=== PATIENT | female | born 1965 | race Caucasian/White ===

== ENCOUNTER → 2017-08-20 | Outpatient (CLI) | payer OTHER ==
[~2017-08-20] MED LIST: ADULT LOW DOSE81 MG PO; ADVAIR 100-501 EACH INH; ALDACTONE25 MG PO; ALPRAZOLAM 0.50.5 M1 PO; CARVEDILOL12.5 MG PO; COZAAR 50 MG TA50 M1 PO; DOXYCYCLINE 10100 MG PO; DUONEB 2.5-0.5 M3 ML INH; ENOXAPARIN30 MG/0.3; FISH OIL 1,4001 EACH PO; GLIPIZIDE 10 MG10 MG PO; HYDROCODON-ACE1 EAC5 PO; IBUPROFEN 200200 M1 PO; JANUMET 50-5001 EACH PO; JANUVIA50 MG PO; LASIX 20 MG TAB20 MG PO; METFORMIN HCL500 MG PO; MICROZIDE12.5 MG PO; NORCO 5-325 TA1 EACH PO; OXYIR 5 MG CAPSU5 M1 PO; PROMETHAZINE V473 ML PO; PROZAC 20 MG20 MG PO; ROBITUSSIN100 MG/53 PO; SPIRIVA INH; TESSALON PERLE100 MG PO; VENTOLIN HFA 1818 GM INH; VITAMINC500 PO; ZPAK PO
== END ==
LOC: M.RAD 14:24
DX: M16.11 Unilateral primary osteoarthritis, right hip (principal); M89.8X5 Other specified disorders of bone, thigh

== ENCOUNTER → 2017-10-09 | Outpatient (CLI) | payer OTHER | LOC: M.NUC 10-01 12:14 | DX: M17.12 Unilateral primary osteoarthritis, left knee (principal); M19.012 Primary osteoarthritis, left shoulder; M19.011 Primary osteoarthritis, right shoulder ==

== ENCOUNTER 2017-10-30 17:32 | Emergency (ER) | payer OTHER ==
[~2017-10-30] VITALS: Ht 154.9 cm; Wt 119.3 kg
[~2017-10-30 17:32] MED LIST changes: -CARVEDILOL12.5 MG PO; -DUONEB 2.5-0.5 M3 ML INH; -JANUVIA50 MG PO; -METFORMIN HCL500 MG PO; -NORCO 5-325 TA1 EACH PO; -PROMETHAZINE V473 ML PO
[2017-10-30] MEDS ORDERED: JANUVIA50 MG PO (17:55)
[2017-10-30] MEDS ORDERED: METFORMIN HCL500 MG PO (17:55)
[2017-10-30] MEDS ORDERED: CARVEDILOL12.5 MG PO (17:56)
[2017-10-30] MEDS ORDERED: DUONEB 2.5-0.5 M3 ML INH (18:32)
[2017-10-30] MEDS ORDERED: TESSALON PERLE100 MG PO (18:32)
[2017-10-30] MEDS ORDERED: PROMETHAZINE V473 ML PO (18:32)
[2017-10-30] MEDS ORDERED: ZPAK PO (18:32)
[2017-10-30 18:43] VITALS: BP 153/82
== END 2017-10-30 18:44 | disposition home or self-care (01) ==
LOC: M.ERS 17:32
DX: J20.9 Acute bronchitis, unspecified (principal); J44.9 Chronic obstructive pulmonary disease, unspecified; I10 Essential (primary) hypertension; E11.9 Type 2 diabetes mellitus without complications; M79.7 Fibromyalgia; Z85.71 Personal history of Hodgkin lymphoma; Z98.890 Other specified postprocedural states; Z88.1 Allergy status to other antibiotic agents

== ENCOUNTER 2018-01-30 13:02 | Emergency (ER) | payer OTHER ==
[~2018-01-30] VITALS: Ht 154.9 cm; Wt 117.9 kg
[~2018-01-30 13:02] MED LIST changes: +CARVEDILOL12.5 MG PO; +DUONEB 2.5-0.5 M3 ML INH; +JANUVIA50 MG PO; +METFORMIN HCL500 MG PO; +PROMETHAZINE V473 ML PO
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
[2018-01-30] MEDS ORDERED: NORCO 5-325 TA1 EACH PO (15:41)
[2018-01-30 15:56] VITALS: BP 144/60
== END 2018-01-30 15:57 | disposition home or self-care (01) ==
LOC: M.ERS 13:02
DX: S09.8XXA Other specified injuries of head, initial encounter (principal); M25.511 Pain in right shoulder; I10 Essential (primary) hypertension; E11.9 Type 2 diabetes mellitus without complications; M79.7 Fibromyalgia; Z88.1 Allergy status to other antibiotic agents; Z88.8 Allergy status to other drugs, medicaments and biological substances; Y08.89XA Assault by other specified means, initial encounter; Y93.89 Activity, other specified; Y92.89 Other specified places as the place of occurrence of the external cause; Y99.8 Other external cause status; J44.9 Chronic obstructive pulmonary disease, unspecified

== ENCOUNTER → 2019-05-14 | Outpatient (CLI) | payer OTHER ==
[~2019-05-14] MED LIST changes: +NORCO 5-325 TA1 EACH PO
== END ==
LOC: M.MRI 05-05 09:48
DX: M51.16 Intervertebral disc disorders with radiculopathy, lumbar region (principal); M51.25 Other intervertebral disc displacement, thoracolumbar region; M12.88 Other specific arthropathies, not elsewhere classified, other specified site; M48.062 Spinal stenosis, lumbar region with neurogenic claudication; M47.817 Spondylosis without myelopathy or radiculopathy, lumbosacral region; K76.0 Fatty (change of) liver, not elsewhere classified; R16.0 Hepatomegaly, not elsewhere classified; N28.89 Other specified disorders of kidney and ureter; Z88.8 Allergy status to other drugs, medicaments and biological substances

== ENCOUNTER 2019-07-02 12:20 | Emergency (ER) | payer OTHER ==
[~2019-07-02] VITALS: Ht 154.9 cm; Wt 108.9 kg
[~2019-07-02 12:20] MED LIST changes: -ALDACTONE25 MG PO; +ALDACTONE50 MG PO
[2019-07-02] MEDS ORDERED: VICTOZA0.6 MG/0.1 SUBQ (12:39)
[2019-07-02 13:24] LABS: HEMATOCRIT 40.1 % (37.0-47.0); HEMOGLOBIN 13.8 gm/dL (12.0-15.0); MCH 29.1 pg (26.0-34.0); MCHC 34.5 g/dL (28.0-37.0); MCV 84.5 fL (80.0-100.0); MPV 7.4 fl. (7.2-11.1); NUCLEATED RBCS 0 /100WBC; PLATELET COUNT* 143 thou/uL (150-400); RBC 4.75 mil/uL (4.20-5.00); RDW-CV 14.7 % (10.5-14.5); WBC 2.3 thou/uL (4.0-11.0)
[2019-07-02 13:37] LABS: CREATININE 0.7 mg/dL (0.6-1.3); POTASSIUM 3.7 mmol/L (3.5-5.1)
[2019-07-02 13:42] LABS: ALBUMIN 3.7 g/dL (3.4-5.0); TOTAL BILIRUBIN 0.9 mg/dL (<0.1-1.0); TOTAL PROTEIN 6.8 g/dL (6.4-8.2)
[2019-07-02 13:43] LABS: URINE BILIRUBIN NEGATIVE (Negative); URINE BLOOD TRACE (Negative); URINE CLARITY CLEAR; URINE COLOR YELLOW; URINE GLUCOSE-RANDOM TRACE (Negative); URINE KETONES NEGATIVE (Negative); URINE LEUKOCYTES-REFLEX TRACE (Negative); URINE NITRITE-REFLEX NEGATIVE (Negative); URINE PROTEIN 1+ (Negative); URINE SPECIFIC GRAVITY >= 1.030 (1.005-1.030); URINE UROBILINOGEN 0.2 E.U./dl (0.2-1.0)
[2019-07-02 13:51] LABS: ABSOLUTE LYMPHOCYTES 0.1 thou/uL (0.8-5.3); ABSOLUTE MONOCYTES 0.1 thou/uL (0.0-1.2); ABSOLUTE NEUTROPHILS 2.1 thou/uL (1.6-8.1); PLATELET ESTIMATE ADEQUATE
[2019-07-02 13:56] LABS: AMORPHOUS PHOSPHATES Few /LPF (None Seen); BACTERIA-REFLEX 1-9 Few /HPF (None Seen); CASTS None Seen /LPF (None Seen); CRYSTALS None Seen /LPF (None Seen); MUCUS >6 Heavy strn/LPF (None Seen); SQUAMOUS >10 Many /LPF (0-3); TRANSITIONAL EPITHEL CELL 0-3 Few /LPF (None Seen); URINE RBC 0-2 Rare /HPF (0-2); URINE WBC-REFLEX 0-5 Rare /HPF (0-5)
[2019-07-02] MEDS ORDERED: NORCO 5-325 TA1 EAC1 PO (15:52)
[2019-07-02] MEDS ORDERED: ZOFRAN ODT4 MG DISSOLVE (15:52)
--- NOTE | 2019-07-02 15:53 | EKG ---
[place] [address] ELECTROCARDIOGRAM REPORT Name: TRUE CRUZ Room: [facility]#: [id number] Admission: 07/02/19 Attend Phys: Discharge: Date of : 63 Report #: [id number] THIS REPORT FOR: //name// [facility] ED Test Date: 2019-07-02 Test Time: 12:55:31 Pat Name: TRUE CRUZ Department: Room: Gender: F [employer]: : 1965 Requested By: Tom Ayala Order Number: [id number] MD: Freddy Mcnulty Measurements Intervals [place] Rate: 97 P: 72 AR: 126 QRS: 44 QRSD: 82 T: 92 QT: 372 QTc: 473 Interpretive Statements Sinus rhythm Nonspecific T abnormalities, lateral leads Baseline wander in lead(s) V3 Compared to ECG 09/28/2012 10:16:11 T-wave abnormality still present Electronically Signed On 07-02-2019 15:52:51 EXECUTIVE PASTRY CHEF by Freddy Mcnulty [email or web address] <ELECTRONICALLY SIGNED> By: Freddy Mcnulty MD, [facility] 07/02/19 1552 1255 [id number] Freddy Mcnulty MD, FACC /EPI
[2019-07-02 16:10] VITALS: BP 151/93
[2019-07-03] MEDS ORDERED: TRESIBA FL100 UNIT/1 SUBQ (19:15)
== END 2019-07-02 16:11 | disposition home or self-care (01) ==
LOC: M.ERS 12:20
PROVIDERS: Emergency Medicine Emergency Medical Services
DX: R10.12 Left upper quadrant pain (principal); R11.2 Nausea with vomiting, unspecified; J44.9 Chronic obstructive pulmonary disease, unspecified; I10 Essential (primary) hypertension; E11.9 Type 2 diabetes mellitus without complications; M79.7 Fibromyalgia; Z88.1 Allergy status to other antibiotic agents; Z98.890 Other specified postprocedural states; Z88.8 Allergy status to other drugs, medicaments and biological substances

== ENCOUNTER 2019-07-03 17:55 | Inpatient (IN) | payer OTHER ==
[~2019-07-03] VITALS: Ht 154.9 cm; Wt 108.9 kg
[~2019-07-03 17:55] MED LIST changes: +NORCO 5-325 TA1 EAC1 PO; +VICTOZA0.6 MG/0.1 SUBQ; +ZOFRAN ODT4 MG DISSOLVE
[2019-07-03 18:05] VITALS: BP 161/85
[2019-07-03 18:52] LABS: HEMATOCRIT 36.9 % (37.0-47.0); HEMOGLOBIN 12.6 gm/dL (12.0-15.0); MCH 28.4 pg (26.0-34.0); MCHC 34.1 g/dL (28.0-37.0); MCV 83.2 fL (80.0-100.0); NUCLEATED RBCS 0 /100WBC; PLATELET COUNT* 111 thou/uL (150-400); RBC 4.44 mil/uL (4.20-5.00); RDW-CV 14.7 % (10.5-14.5)
[2019-07-03 18:58] LABS: CALCIUM 8.8 mg/dL (8.5-10.1); CREATININE 0.7 mg/dL (0.6-1.3); POTASSIUM 3.3 mmol/L (3.5-5.1); WBC 1.6 thou/uL (4.0-11.0)
[2019-07-03 19:02] LABS: ALBUMIN 3.4 g/dL (3.4-5.0); TOTAL BILIRUBIN 1.2 mg/dL (<0.1-1.0); TOTAL PROTEIN 6.4 g/dL (6.4-8.2)
[2019-07-03] MEDS ORDERED: TRESIBA FL100 UNIT/1 SUBQ (19:15)
[2019-07-03 19:28] LABS: ABSOLUTE EOSINOPHILS 0.1 thou/uL (0.0-0.7); ABSOLUTE LYMPHOCYTES 0.1 thou/uL (0.8-5.3); ABSOLUTE MONOCYTES 0.1 thou/uL (0.0-1.2); ABSOLUTE NEUTROPHILS 1.3 thou/uL (1.6-8.1); PLATELET ESTIMATE DECREASED
[2019-07-03 19:29] LABS: ANISOCYTOSIS Occasional
[2019-07-03 19:32] LABS: URINE BILIRUBIN NEGATIVE (Negative); URINE BLOOD TRACE (Negative); URINE CLARITY SL CLOUDY; URINE COLOR YELLOW; URINE GLUCOSE-RANDOM TRACE (Negative); URINE KETONES TRACE (Negative); URINE LEUKOCYTES-REFLEX 1+ (Negative); URINE NITRITE-REFLEX NEGATIVE (Negative); URINE PROTEIN TRACE (Negative); URINE SPECIFIC GRAVITY 1.025 (1.005-1.030); URINE UROBILINOGEN 0.2 E.U./dl (0.2-1.0)
[2019-07-03 19:36] LABS: SQUAMOUS >10 Many /LPF (0-3)
[2019-07-03 19:37] LABS: URINE WBC-REFLEX 6-15 Few /HPF (0-5)
[2019-07-03 19:38] LABS: BACTERIA-REFLEX >30 Many /HPF (None Seen); HYALINE CASTS 0-3 Few /LPF (None Seen); MUCUS >6 Heavy strn/LPF (None Seen); URINE RBC 0-2 Rare /HPF (0-2)
[2019-07-03 19:39] LABS: CRYSTALS None Seen /LPF (None Seen); WBC CLUMPS Few (None Seen)
[2019-07-03 19:49] LABS: INFLUENZA A ANTIGEN Negative (Negative); INFLUENZA B ANTIGEN Negative (Negative)
[2019-07-03 21:50] VITALS: BP 154/65
[2019-07-04 07:11] VITALS: BP 117/50
[2019-07-04 16:00] VITALS: BP 113/55
[2019-07-05 03:55] VITALS: BP 120/64
[2019-07-05 07:52] VITALS: BP 130/63
[2019-07-05] MEDS ORDERED: METFORMIN HCL500 M3 PO (08:50)
[2019-07-05 10:28] LABS: HEMATOCRIT 29.9 % (37.0-47.0); MCH 28.9 pg (26.0-34.0); MCHC 34.4 g/dL (28.0-37.0); MPV 7.6 fl. (7.2-11.1); RBC 3.56 mil/uL (4.20-5.00); RDW-CV 14.6 % (10.5-14.5)
[2019-07-05 10:31] LABS: HEMOGLOBIN 10.3 gm/dL (12.0-15.0)
[2019-07-05 10:34] LABS: WBC 1.5 thou/uL (4.0-11.0)
[2019-07-05 11:03] LABS: ALBUMIN 2.8 g/dL (3.4-5.0); CALCIUM 7.6 mg/dL (8.5-10.1); CREATININE 0.6 mg/dL (0.6-1.3); PHOSPHORUS* 2.3 mg/dL (2.5-4.9); POTASSIUM 3.1 mmol/L (3.5-5.1)
[2019-07-05 16:00] VITALS: BP 102/56
[2019-07-05 21:41] LABS: URINE BILIRUBIN NEGATIVE (Negative); URINE BLOOD NEGATIVE (Negative); URINE CLARITY CLEAR; URINE COLOR YELLOW; URINE GLUCOSE-RANDOM NEGATIVE (Negative); URINE KETONES NEGATIVE (Negative); URINE LEUKOCYTES-REFLEX NEGATIVE (Negative); URINE NITRITE-REFLEX NEGATIVE (Negative); URINE PROTEIN NEGATIVE (Negative); URINE SPECIFIC GRAVITY 1.025 (1.005-1.030)
[2019-07-05 23:24] VITALS: BP 135/57
[2019-07-06 06:41] LABS: HEMOGLOBIN 9.6 gm/dL (12.0-15.0); MPV 7.8 fl. (7.2-11.1); RDW-CV 14.6 % (10.5-14.5)
[2019-07-06 06:43] LABS: CALCIUM 8.4 mg/dL (8.5-10.1); CREATININE 0.6 mg/dL (0.6-1.3); HEMATOCRIT 26.9 % (37.0-47.0); MCH 29.5 pg (26.0-34.0); MCHC 35.6 g/dL (28.0-37.0); MCV 82.8 fL (80.0-100.0); NUCLEATED RBCS 2 /100WBC; PLATELET COUNT* 100 thou/uL (150-400); POTASSIUM 3.5 mmol/L (3.5-5.1); RBC 3.25 mil/uL (4.20-5.00)
[2019-07-06 06:45] LABS: WBC 1.1 thou/uL (4.0-11.0)
[2019-07-06 07:50] VITALS: BP 117/69
[2019-07-06 08:15] LABS: ABSOLUTE EOSINOPHILS 0.1 thou/uL (0.0-0.7); ABSOLUTE LYMPHOCYTES 0.1 thou/uL (0.8-5.3); ABSOLUTE MONOCYTES 0.1 thou/uL (0.0-1.2); ABSOLUTE NEUTROPHILS 0.8 thou/uL (1.6-8.1); PLATELET ESTIMATE ADEQUATE
[2019-07-06 16:00] VITALS: BP 133/75
[2019-07-07 05:09] LABS: ABSOLUTE EOSINOPHILS 0.1 thou/uL (0.0-0.7); ABSOLUTE LYMPHOCYTES 0.1 thou/uL (0.8-5.3); BASOPHILS 0.3 %; EOSINOPHILS 4.7 %; HEMATOCRIT 27.6 % (37.0-47.0); HEMOGLOBIN 9.8 gm/dL (12.0-15.0); LYMPHOCYTES 9.6 %; MCH 29.3 pg (26.0-34.0); MCHC 35.3 g/dL (28.0-37.0); MCV 82.8 fL (80.0-100.0); MONOCYTES 11.6 %; MPV 7.2 fl. (7.2-11.1); NUCLEATED RBCS 0 /100WBC; PLATELET COUNT* 131 thou/uL (150-400); POLYS 73.8 %; RBC 3.34 mil/uL (4.20-5.00); RDW-CV 14.7 % (10.5-14.5)
[2019-07-07 05:24] LABS: ALBUMIN 2.9 g/dL (3.4-5.0); CALCIUM 8.8 mg/dL (8.5-10.1); CREATININE 0.7 mg/dL (0.6-1.3); MAGNESIUM 1.9 mg/dL (1.8-2.4); POTASSIUM 3.3 mmol/L (3.5-5.1); TOTAL BILIRUBIN 0.6 mg/dL (<0.1-1.0)
[2019-07-07 05:25] LABS: ABSOLUTE MONOCYTES 0.2 thou/uL (0.0-1.2)
[2019-07-07 05:26] LABS: WBC 1.3 thou/uL (4.0-11.0)
[2019-07-07 05:44] LABS: % SATURATION 13 % (20-39); IRON 30 ug/dL (50-175)
[2019-07-07 07:50] VITALS: BP 104/66
[2019-07-07 17:29] VITALS: BP 141/76
--- NOTE | 2019-07-07 17:29 | CON ---
[address] [address] CONSULTATION Name: TRUE CRUZ Room: [address] IN M.R.#: [id number] Admission: 07/03/19 Attend Phys: Ronnell Frazier MD Discharge: Date of : 63 Report #: [id number] THIS REPORT FOR: //name// CC: Edinson Cifuentes DATE OF SERVICE: 07/05/2019 REASON FOR CONSULTATION: Leukopenia. SUBJECTIVE: A 54-year-old female, was evaluated at [facility] because of symptoms of abdominal pain, started a few days prior to admission associated with diarrhea and vomiting. The patient was found to have a temperature of 101 with the chills and she described her pain as a throbbing/constant, located at the epigastric and left upper quadrant. The patient upon admission was found to have a WBC of 1.6 and differential showed absolute neutrophils at 1.3. The patient stated that she has [facility] non-[facility]gkin [facility], follicular lymphoma, which was treated, last dose with bendamustine and rituximab in February. Per the patient, her white count was borderline low; however, it was not that low. In the records in [facility], the prior CBC was done in 09/2012, WBC was 6.8. The patient denies any night sweats or lymphadenopathy. REVIEW OF SYSTEMS: All systems were reviewed, it was negative except the above. PAST MEDICAL HISTORY: Diabetes mellitus, hypertension, non-Hodgkin lymphoma follicular subtype, fibromyalgia and osteoarthritis. PAST SURGICAL HISTORY: Right knee repair. SOCIAL HISTORY: She is an ex-smoker. She quit more than one year ago. No alcohol or drug abuse. ALLERGIES: SHE IS ALLERGIC TO AUGMENTIN, POTASSIUM CLAVULANATE. CURRENT MEDICATIONS: Per admission list. PHYSICAL EXAMINATION: VITAL SIGNS: Today, temperature is 37.1, T-max 37.2, pulse is 84, respirations 20, blood pressure is 120/64, SpO2 was 96% on room air. GENERAL: The patient was sitting at the edge of the bed. She was not in acute distress. LUNGS: Clear to auscultations bilaterally. HEART: Regular rate and rhythm. S1, S2 within normal limits. EXTREMITIES: [place] [address] CONSULTATION Name: TRUE CRUZ Griffin Room: [address]#: [id number] Admission: 07/03/19 Attend Phys: Ronnell Frazier MD Discharge: Date of : 63 Report #: [id number] LABORATORY DATA: On 07/03/2019, WBC 1.6, hemoglobin 12.6, platelets 111, ANC is 1.3. Chemistry: Sodium is 133, potassium 3.3, creatinine 0.7, bilirubin 1.2, AST 49, ALT 62. Lipase is 162. IMAGING: Abdominal ultrasound showed hepatic steatosis. Spleen was measured as 11.3 cm. ASSESSMENT AND PLAN: A 54-year-old female who has been evaluated today because of neutropenia and very mild thrombocytopenia. The patient has been following with her oncologist after she finished treatment with bendamustine and rituximab in 02/2019. The etiology of her leukopenia could be related to myelosuppression with a gastroenteritis and viral illness. In addition to that, her ultrasound showed hepatic steatosis. RECOMMENDATIONS: 1. I will obtain a workup including peripheral blood smear, B12, copper level and folate, LDH and haptoglobin. Other differential will be recurrence of lymphoma with a bone marrow involvement. 2. I would like to obtain a workup during hospitalization if her neutropenia worsened, we will arrange for a bone marrow biopsy. Otherwise, follow up with her primary oncologist. <ELECTRONICALLY SIGNED> By: Val Roy MD 07/07/19 1729 0900 [id number] Roy MD /nt
[2019-07-08 02:07] LABS: GLYCOHEMOGLOBIN (HGB A1C) 9.7 % (4.8-5.6)
--- NOTE | 2019-07-08 14:27 | CON ---
[address] [address] CONSULTATION Name: TRUE CRUZ Room: [address]#: [id number] Admission: 07/03/19 Attend Phys: Ronnell Frazier MD Discharge: 07/07/19 Date of : 63 Report #: [id number] THIS REPORT FOR: //name// CC: Ronnell Cifuentes DO DICTATED BY: Carmen Hager [facility] DATE OF SERVICE: 07/05/2019 PRIMARY CARE PHYSICIAN: Isabela Cifuentes DO Please note at the time of this dictation, the patient was seen and physically examined by myself. REASON FOR CONSULTATION: Abdominal pain and some nausea and vomiting. HISTORY OF PRESENT ILLNESS: This is a 54-year-old female who presented to her PCP's office with this abdominal pain. She had a CT scan done as an outpatient on 07/02/2019 for this epigastric discomfort in the left upper quadrant that radiated into her back. CT showed a small fundal mass at the gallbladder with also fatty infiltrations of the liver, otherwise negative. The patient states then the following day, she developed a fever along with her nausea and vomiting, which was negative for any bright red blood or coffee-ground emesis that prompted her to come back to the Emergency Room. She has not had any more vomiting since she has been here, but only the nausea. She does complain of early satiety, which she has had for greater than 1 year and has never had a gastric emptying test. She states she will have abdominal pain shortly after eating and will likely have a loose stool within 20 minutes. She has loose stools on a normal basis, which are anywhere from 3-5 a day. She did have an EGD and colonoscopy done at [facility] in [place]. EGD and colonoscopy were essentially negative at that time and we will request those records for our review as well as pathology. ALLERGIES: AMOXICILLIN AND AUGMENTIN. MEDICATIONS FROM HOME: Aldactone, Glucotrol, Januvia, Glucophage, Coreg, Victoza, Tresiba, and Ventolin. PAST MEDICAL HISTORY: Significant for COPD, hypertension, diabetes, non-Hodgkin's lymphoma and follicular lymphoma, fibromyalgia, degenerative disk disease, and hidradenitis. PAST SURGICAL HISTORY: Knee arthroscopy, , [place] [address] CONSULTATION Name: TRUE CRUZ Griffin Room: [address]#: [id number] Admission: 07/03/19 Attend Phys: Ronnell Frazier MD Discharge: 07/07/19 Date of : 63 Report #: [id number] FAMILY HISTORY: Negative. SOCIAL HISTORY: Alcohol on special occasions, quit smoking probably 6 years ago, and denies any illegal drug use. REVIEW OF SYSTEMS: Twelve-point review of systems is essentially negative except what is mentioned in the HPI. PHYSICAL EXAMINATION: VITAL SIGNS: Temperature 36.6, pulse 93, respirations 17, blood pressure 120/64. HEART: Regular rate and rhythm. LUNGS: Diminished, but clear. ABDOMEN: Soft, positive bowel sounds in all 4 quadrants with tenderness noted in the epigastric and right and left upper quadrant areas. LABORATORY DATA: Hemoglobin 10.3, white count is 1.5, platelets 102. GFR is 87. LFTs: Total bilirubin is 1.2, alkaline phosphatase is 83, ALT 62, and AST is 49. CT done as an outpatient showed this small fundal mass questionable of the gallbladder with fatty infiltration that was noted on admission. She did have an ultrasound that showed hepatic steatosis. She did have an outpatient CCK PIPIDA that was negative she was told. IMPRESSION: 1. Abdominal pain right upper quadrant, possibly related to reflux, occurs after eating. Left upper quadrant, questionable etiology. 2. Early satiety. 3. Abnormal CT of the gallbladder. 4. Hepatic steatosis. 5. Neutropenia. 6. Thrombocytopenia. 7. Slight elevation of her total bilirubin. 8. Non-Hodgkin's lymphoma and follicular lymphoma. PLAN: 1. GET which she needs, but unable to do at this time. 2. The patient would likely benefit from an EUS to further evaluate her left upper quadrant pain, liver, and pancreas. 3. Obtain records from [facility] regarding her EGD colon with path done earlier this year. 4. We will try Bentyl 10 mg before meals t.i.d. to see if this will help with some of her abdominal cramping with eating. 5. Further recommendations to be made once the above has been noted and Dr. Dominique sees the patient later today. [address] [place] [address] CONSULTATION Name: TRUE CRUZ Room: [address] IN M.R.#: [id number] Admission: 07/03/19 Attend Phys: Ronnell Frazier MD Discharge: 07/07/19 Date of : 63 Report #: [id number] Thank you for allowing us to participate in this patient's care. Please do not hesitate to call with any questions in regard to this consult. <ELECTRONICALLY SIGNED> By: Conor Dominique MD 07/08/19 1427 1251 [id number] Dominique MD /nt
== END 2019-07-07 18:29 | disposition left against medical advice (07) | DRG 391 ==
LOC: M.ERS 17:55 → M.TBA-ER 21:22 → M.3W 21:22
PROVIDERS: Family Medicine; Internal Medicine; Nurse Practitioner Family; Surgery; ADMIT Internal Medicine
DX: K52.9 Noninfective gastroenteritis and colitis, unspecified (principal); D61.810 Antineoplastic chemotherapy induced pancytopenia; N12 Tubulo-interstitial nephritis, not specified as acute or chronic; Z68.42 Body mass index [BMI] 45.0-49.9, adult; B34.9 Viral infection, unspecified; I10 Essential (primary) hypertension; J44.9 Chronic obstructive pulmonary disease, unspecified; K76.0 Fatty (change of) liver, not elsewhere classified; E66.01 Morbid (severe) obesity due to excess calories; K21.9 Gastro-esophageal reflux disease without esophagitis; T45.1X5A Adverse effect of antineoplastic and immunosuppressive drugs, initial encounter; E11.9 Type 2 diabetes mellitus without complications; M79.7 Fibromyalgia; M19.90 Unspecified osteoarthritis, unspecified site; R68.81 Early satiety; Z96.651 Presence of right artificial knee joint; Z79.4 Long term (current) use of insulin; Z79.899 Other long term (current) drug therapy; Z88.1 Allergy status to other antibiotic agents; Z72.89 Other problems related to lifestyle; Z87.891 Personal history of nicotine dependence; Z85.72 Personal history of non-Hodgkin lymphomas; Z82.49 Family history of ischemic heart disease and other diseases of the circulatory system